=== PATIENT | male | born 1950 | race Caucasian/White ===

== ENCOUNTER 2016-09-21 12:13 | Day surgery (SDC) | payer OTHER ==
--- NOTE | ~2016-09-21 | OP ---
Record Of Operation [facility] [address] [place]. [address] NAME: ARABELLA MEZA : 46 STATUS : [facility]#: [id number] AGE: 66 ADM/REG DATE : 09/21/16 MR#: [id number] REPORT SERV DATE: 09/21/16 DICTATED BY: SAHRASANDY KAUR DATE: 09/21/16 REPORT STATUS : Draft TRANSCRIBED BY: MODL DATE: 09/21/16 DATE OF PROCEDURE: 09/21/2016 PREOPERATIVE DIAGNOSIS: Elevated PSA (10). POSTOPERATIVE DIAGNOSIS: Elevated PSA (10). PROCEDURE PERFORMED: Transrectal ultrasound of the prostate needle biopsy. SURGEON: Sandy Stevens M.D. ANESTHESIA: Monitored anesthesia care. COMPLICATIONS: None. BLOOD LOSS: 5 mL. INDICATION: Elevated PSA of 6.8. The patient's BPH symptoms are adequately treated with tamsulosin. TECHNIQUE: Informed consent was obtained. Mr. Meza was brought to the operating room. Monitored anesthesia care was administered. He was placed in the left lateral decubitus position with bed flexed. He received Ancef and gentamicin preoperatively. The digital rectal exam showed a greater than 50 g prostate with no obvious nodule. Transrectal ultrasound probe was introduced. Ultrasonographic images of the prostate were obtained. There were bilateral calcifications at the transition zone, greater on the left than right. Seminal vesicles were not dilated. The prostate volume was estimated at 82 mL. Sextant prostate needle biopsies, totaling 12 biopsies were obtained. Digital pressure was held against the prostate for minute after the biopsy had been completed. He tolerated the procedure well and was taken to the recovery area in satisfactory condition. I will see him back in two weeks. ONEAL/LORIE Sandy Stevens M.D. / [id number] CC: Miri Easley DONALD A.
[~2016-09-21 12:13] MED LIST: CARDCD360 PO; FLOMAX4 PO; GLUCOTRO10 PO; GLUCPH PO; XALAT OPH
== END 2016-09-21 16:03 | disposition home or self-care (01) ==
LOC: SDC 12:13
PROVIDERS: Urology
PROC: 0VB03ZX Excision of Prostate, Percutaneous Approach, Diagnostic (ICD-10-PCS; principal; 2016-09-21 14:00)
DX: C61 Malignant neoplasm of prostate (principal); N40.0 Benign prostatic hyperplasia without lower urinary tract symptoms; I10 Essential (primary) hypertension; E11.9 Type 2 diabetes mellitus without complications; H40.9 Unspecified glaucoma; F17.210 Nicotine dependence, cigarettes, uncomplicated; Z79.84 Long term (current) use of oral hypoglycemic drugs; Z79.899 Other long term (current) drug therapy; Z96.1 Presence of intraocular lens; Z98.41 Cataract extraction status, right eye; Z98.42 Cataract extraction status, left eye
CPT/HCPCS: 76872; 76942; 80048; 82962; 85025; 88305; 93005; J0690; J1580; J2250